=== PATIENT | female | born 1995 | race Two or more races ===

== ENCOUNTER 2024-07-31 07:55 | Day surgery (SDC) | payer OTHER, MEDICAID, SELFPAY ==
[2024-07-30 10:00] LABS: HCG Qualitative,Urine Negative
[2024-07-30 11:28] VITALS: BMI 33.9
[2024-07-31] VITALS (9 sets, daily range): BP systolic 117–139; BP diastolic 80–104; PULSE 83–101; RESP 14–30; TEMP 36.2–37; O2SAT 98–100; BMI 35.0
[2024-07-31] MEDS: fentaNYL CIT INJ 50 mCg/ML AMP 2ML (ASD USE ONLY) IV (09:43)
[2024-07-31] MEDS: SODIUM CHLORIDE 0.9% 500 ML 500 ML 20 ML IV (09:43)
[2024-07-31] MEDS: DiphenhydrAMINE INJ 50 MG/ML VIAL 25 MG IV (09:44)
[2024-07-31] MEDS: MIDAZOLAM INJ 1 MG/ML VIAL 2 ML (ASD USE ONLY) 2 MG IV (09:46)
--- NOTE | 2024-07-31 10:18 | SUR.PHASEII ---
1006: Pt received in [facility] via [facility]. Report from Helen FLORES. Pt sleepy. Easily aroused with eye opening. Resp even, unlabored. VS stable. No c/o pain, discomfort.
--- NOTE | 2024-07-31 10:54 | SUR.PHASEII ---
1030: Pt more awake, alert. VS stable. Denies pain. Sitting up tolerating po fluids with no difficulty swallowing and no n/v. 1044: Pt fully awake, oriented x3. Pt assisted to restroom. Ambulation steady. Pt dressed and assisted to transport chair. Pt and brother stated understanding of discharge instructions. Pt discharged from [facility] in stable condition.
== END 2024-07-31 10:44 | disposition home or self-care (01) ==
PROVIDERS: PCP Family Medicine; Referring Provider Specialist; Visit Provider Specialist
PROC: 0DBE8ZX Excision of Large Intestine, Via Natural or Artificial Opening Endoscopic, Diagnostic (ICD-10-PCS; CPT 45380; principal; 2024-07-31 11:30)
DX: K64.2 Third degree hemorrhoids (principal)
CPT/HCPCS: 46221; 45378; 81025; A4649; J1200; J2250; J3010; J7040